=== PATIENT | male | born 1965 | race Caucasian/White ===

== ENCOUNTER 2016-06-08 10:38 | Emergency (ER) | payer SELFPAY ==
[~2016-06-08] VITALS: Ht 177.8 cm; Wt 90.9 kg
[~2016-06-08 10:38] MED LIST: CLON1 PO; LEXA20TA PO
[2016-06-08 10:50] VITALS: BP 176/111; PULSE 110; RESP 22; TEMP 98.6; O2SAT 100
[2016-06-08 10:55] VITALS: O2SAT 100
--- NOTE | 2016-06-08 10:57 | PD ---
HPI Chief Complaint: Chest Pain Time Seen by Provider: 10:43 Travel History International Travel<30 days: No Contact w/Intl Traveler<30days: No Traveled to known affect area: No History of Present Illness HPI This patient complains of chest pain. He woke up this morning with the chest pain. Pain is left side of his sternum. Feels like a pressure and aching. It is not exertional. Severity is moderate. He is extremely anxious. He is close to breaking down in tears. He has a divorce hearing scheduled for 10 minutes from now. He has history of anxiety and has chronic trouble with sleep. He uses excessive amounts of [id number] sleeping pills not had any effort to hurt himself but because he can't sleep. He denies history of cardiac disease. He never goes to a physician however. No alleviating factors. Duration 3 hours. PFSH Social History Alcohol Use: No Tobacco Use: Yes Substance Use: No Allergies-Medications (Allergen,Severity, Reaction): Coded Allergies: No Known Allergies (Unverified , 06/08/16) Reported Meds & Prescriptions Reported Meds & Active Scripts Active Review of Systems General / Constitutional: No: Fever Eyes: No: Visual changes HENT: No: Headaches Cardiovascular: Positive: Chest Pain or Discomfort Respiratory: No: Shortness of Breath Gastrointestinal: No: Abdominal Pain Genitourinary: No: Dysuria Musculoskeletal: No: Pain Skin: No Rash Neurologic: No: Weakness Psychiatric: Positive: Anxiety, No: Depression Endocrine: No: Polydipsia Hematologic/Lymphatic: No: Easy Bruising Physical Exam Narrative GENERAL: Well-nourished, well-developed patient with chest pain and anxiety . SKIN: Warm and dry. HEAD: Atraumatic. Normocephalic. EYES: Pupils equal and round. No scleral icterus. No injection or drainage. ENT: No nasal bleeding or discharge. Mucous membranes pink and moist. NECK: Trachea midline. No JVD. CARDIOVASCULAR: Regular rate and rhythm. No murmur appreciated. Tachycardic without ectopy RESPIRATORY: No accessory muscle use. Clear to auscultation. Breath sounds equal bilaterally. GASTROINTESTINAL: Abdomen soft, non-tender, nondistended. Hepatic and splenic margins not palpable. MUSCULOSKELETAL: No obvious deformities. No clubbing. No cyanosis. No edema. NEUROLOGICAL: Awake and alert. No obvious cranial nerve deficits. Motor grossly within normal limits. Normal speech. PSYCHIATRIC: Anxious mood and affect; insight and judgment normal. Data Data Last Documented VS Vital Signs Date Time Temp Pulse Resp B/P Pulse Ox O2 Delivery O2 Flow Rate FiO2 06/08/16 11:00 98.6 102 20 160/97 100 Room Air Orders Electrocardiogram (06/08/16 10:49) Basic Metabolic Panel (Bmp) (06/08/16 10:49) Ckmb (Isoenzyme) Profile (06/08/16 10:49) Complete Blood Count With Diff (06/08/16 10:49) Prothrombin Time / Inr (Pt) (06/08/16 10:49) Act Partial Throm Time (Ptt) (06/08/16 10:49) Troponin I (06/08/16 10:49) Chest, Single Ap (06/08/16 10:49) Ecg Monitoring (06/08/16 10:49) Iv Access Insert/Monitor (06/08/16 10:49) Oximetry (06/08/16 10:49) Aspirin (Aspirin) (06/08/16 11:00) Sodium Chloride 0.9% Flush (Ns Flush) (06/08/16 11:00) Lorazepam (Ativan) (06/08/16 11:00) Labs Laboratory Tests Test 06/08/16 10:05 White Blood Count 7.8 TH/MM3 Red Blood Count 5.53 MIL/MM3 Hemoglobin 17.0 GM/DL Hematocrit 51.4 % Mean Corpuscular Volume 93.0 FL Mean Corpuscular Hemoglobin 30.8 PG Mean Corpuscular Hemoglobin 33.1 % Concent Red Cell Distribution Width 13.5 % Platelet Count 309 TH/MM3 Mean Platelet Volume 7.8 FL Neutrophils (%) (Auto) 66.6 % Lymphocytes (%) (Auto) 23.2 % Monocytes (%) (Auto) 7.6 % Eosinophils (%) (Auto) 1.5 % Basophils (%) (Auto) 1.1 % Neutrophils # (Auto) 5.2 TH/MM3 Lymphocytes # (Auto) 1.8 TH/MM3 Monocytes # (Auto) 0.6 TH/MM3 Eosinophils # (Auto) 0.1 TH/MM3 Basophils # (Auto) 0.1 TH/MM3 CBC Comment DIFF FINAL Differential Comment Prothrombin Time 11.0 SEC Prothromb Time International 1.0 RATIO Ratio Activated Partial 28.0 SEC Thromboplast Time Sodium Level 142 MEQ/L Potassium Level 3.5 MEQ/L Chloride Level 103 MEQ/L Carbon Dioxide Level 27.0 MEQ/L Anion Gap 12 MEQ/L Blood Urea Nitrogen 12 MG/DL Creatinine 1.30 MG/DL Estimat Glomerular Filtration 58 ML/MIN Rate Random Glucose 99 MG/DL Calcium Level 8.7 MG/DL Total Creatine Kinase 67 U/L Troponin I LESS THAN 0.02 NG/ML MDM Medical Decision Making Medical Screen Exam Complete: Yes Emergency Medical Condition: Yes Medical Record Reviewed: Yes Differential Diagnosis Differential diagnosis includes SC, angina, pericarditis, pleurisy, GERD, anxiety. Narrative Course I have reviewed the patient's electronic medical record. Reviewed his psychiatry outpatient evaluation from 2014. Has not been here since IV placed I reviewed the EKG shows sinus tachycardia without ST elevation or ectopy I reviewed the chest x-ray which is normal Extended cardiac monitoring shows sinus tachycardia but steadily improving. Currently down to 110 from 130 CBC is normal Metabolic profile is normal CK is normal Troponin is normal Coagulation studies are normal I gave him an aspirin and 2 mg oral Ativan for significant anxiety issues Patient is calm down and tachycardia resolved. Patient workup is negative but I am recommending 23 are observation in the chest pain center to rule out cardiac cause of his symptoms. He is a smoker and may have other risk factors he has not had it evaluated. He thought about it but is going to refuse and sign out AGAINST MEDICAL ADVICE. I've advised him to return if he worsens or changes his mind. Diagnosis Primary Impression: Chest pain in adult Scripts No Active Prescriptions or Reported Meds Disposition: 07 AGAINST MEDICAL ADVICE Todd Alvarez MD Jun 08, 2016 10:57
[2016-06-08 11:00] VITALS: BP 160/97; PULSE 102; RESP 20; TEMP 98.6; O2SAT 100
[2016-06-08] MEDS ORDERED: SODIUM CHLORIDE 0.9% FLUSH 5 ML FLUSH IVF PRN (11:00)
[2016-06-08] MEDS ORDERED: ASPIRIN 325 MG TAB PO ONE (11:00)
[2016-06-08] MEDS ORDERED: LORazepam 1 MG TAB PO ONE (11:00)
[2016-06-08 11:04] LABS: AUTOMATED NEUTROPHIL # 5.2 TH/MM3 (1.8-7.7); BASOPHIL # 0.1 TH/MM3 (0-0.2); BASOPHIL % 1.1 % (0.0-2.0); EOSINOPHIL # 0.1 TH/MM3 (0-0.4); EOSINOPHIL % 1.5 % (0.0-4.0); HEMATOCRIT 51.4 % (39.0-51.0); HEMO FLAGS DIFF FINAL; LYMPH % 23.2 % (9.0-44.0); LYMPHOCYTE # 1.8 TH/MM3 (1.0-4.8); MEAN CORPUSCULAR HEMOGLOBIN 30.8 PG (27.0-34.0); MEAN CORPUSCULAR HGB CONC 33.1 % (32.0-36.0); MONO % 7.6 % (0.0-8.0); NEUT % 66.6 % (16.0-70.0); PLATELET COUNT 309 TH/MM3 (150-450); RED BLOOD COUNT 5.53 MIL/MM3 (4.50-5.90); RED CELL DISTRIBUTION WIDTH 13.5 % (11.6-17.2); WHITE BLOOD COUNT 7.8 TH/MM3 (4.0-11.0)
[2016-06-08 11:14] LABS: CHLORIDE 103 MEQ/L (98-107); POTASSIUM 3.5 MEQ/L (3.5-5.1); SODIUM (NA) 142 MEQ/L (136-145)
[2016-06-08 11:17] LABS: ANION GAP 12 MEQ/L (5-15); BLOOD UREA NITROGEN 12 MG/DL (7-18)
[2016-06-08 11:21] LABS: GLOMERULAR FILTRATION RATE 58 ML/MIN (>89)
[2016-06-08 11:27] LABS: CREATINE KINASE 67 U/L (39-308)
--- NOTE | 2016-06-08 11:30 | RADHPO ---
EXAM DATE/TIME: 06/08/2016 11:24 [facility] COMPARISON: No previous studies available for comparison. INDICATIONS : Chest pain, short of breath. MEDICAL HISTORY : None. SURGICAL HISTORY : None. ENCOUNTER: Initial ACUITY: 1 day PAIN SCORE: 10 LOCATION: Bilateral chest FINDINGS: A single view of the chest demonstrates the lungs to be symmetrically aerated without evidence of mas s, infiltrate or effusion. The cardiomediastinal contours are unremarkable. Osseous structures are intact. CONCLUSION: No acute disease. Alvin Foster MD FACR on June 08, 2016 at 11:28 Board Certified Radiologist. This report was verified electronically.
[2016-06-08 12:20] VITALS: BP 142/101; PULSE 105; RESP 18; O2SAT 98
--- NOTE | 2016-06-09 18:15 | EKG ---
Date Performed: 06/08/2016 Time Performed: 10:41:08 PTAGE: 51 years EKG: Sinus tachycardia. Inferior/lateral ST-T changes are nonspecific Borderline ECG NO PREVIOUS TRACING DOCTOR: Galindo Akbar Interpretating Date/Time 06/09/2016 18:12:27
[2016-09-13] MEDS ORDERED: IBUP800T23 PO (17:36)
[2016-09-13] MEDS ORDERED: OXYC30TA62 PO (17:36)
[2016-09-13] MEDS ORDERED: CEPH-460 PO (17:36)
[2016-09-13] MEDS ORDERED: NORC5TAB PO (17:36)
== END 2016-06-08 12:30 | disposition left against medical advice (07) ==
LOC: PHED 10:38
DX: R07.89 Other chest pain (principal); R00.0 Tachycardia, unspecified; R94.31 Abnormal electrocardiogram [ECG] [EKG]; Z72.0 Tobacco use; Z86.59 Personal history of other mental and behavioral disorders; Z53.29 Procedure and treatment not carried out because of patient's decision for other reasons
CPT/HCPCS: 71010; 80048; 82550; 84484; 85025; 85610; 85730; 93005

== ENCOUNTER → 2016-09-13 | Day surgery (SDC) | payer SELFPAY ==
[~2016-09-13] VITALS: Ht 177.8 cm; Wt 92.0 kg
[~2016-09-13] MED LIST changes: +BUPIVACAINE HCL PF 0.5% 30 ML VIAL ONE; +CEPH-460 PO; +CHLORHEXIDINE GLUCONATE 2 % 1 PACK (2 CLOTHS) TOPICAL PRN; -CLON1 PO; +DO NOT ADM ANY ANTICOAGULANT DRUGS PRN; +FAMOTIDINE 20 MG/2 ML VIAL ONE; +HYDROmorphone HCL PF 2 MG/ML VIAL ONE; +IBUP800T23 PO; +INSULIN HUMAN REGULAR 1,000 UNITS/10 ML VIAL SQ PRN; +LACTATED RINGER'S 1000 ML INJ 1,000 ML IV ONE; +LACTATED RINGER'S 1000 ML IV PRN; -LEXA20TA PO; +LIDOCAINE HCL 2% 50 ML VIAL ONE; +METOPROLOL TARTRATE 25 MG TAB PO PRN; +MIDAZOLAM HCL 2 MG/2 ML VIAL ONE; +NEOMYCIN/POLYMYXIN 1 ML G.U. IRRIGANT TOPICAL ONE; +NORC5TAB PO; +OXYC30TA62 PO; +POVIDONE IODINE 5% (ANTISEPSIS KIT) 4 APPLICATIONS EACH NARE PRN; +PROPOFOL 200 MG/20 ML AMP IV ONE; +SODIUM CHLORID 0.9% 500 ML IV PRN; +ceFAZolin 1,000 MG/NS 100 ML IV SCH; +ceFAZolin INJ 1,000 MG VIAL IV ONE
[2016-09-13 13:07] VITALS: BP 116/75; PULSE 76; RESP 18; TEMP 98.9; O2SAT 97
[2016-09-13 13:28] LABS: AUTOMATED NEUTROPHIL # 3.6 TH/MM3 (1.8-7.7); BASOPHIL % 0.6 % (0.0-2.0); EOSINOPHIL # 0.2 TH/MM3 (0-0.4); EOSINOPHIL % 3.1 % (0.0-4.0); HEMATOCRIT 42.7 % (39.0-51.0); HEMO FLAGS DIFF FINAL; LYMPH % 25.7 % (9.0-44.0); LYMPHOCYTE # 1.5 TH/MM3 (1.0-4.8); MEAN CELL VOLUME 90.7 FL (80.0-100.0); MEAN CORPUSCULAR HEMOGLOBIN 31.4 PG (27.0-34.0); MEAN CORPUSCULAR HGB CONC 34.7 % (32.0-36.0); MONO % 8.1 % (0.0-8.0); NEUT % 62.5 % (16.0-70.0); PLATELET COUNT 225 TH/MM3 (150-450); RED BLOOD COUNT 4.71 MIL/MM3 (4.50-5.90); RED CELL DISTRIBUTION WIDTH 12.9 % (11.6-17.2); WHITE BLOOD COUNT 5.7 TH/MM3 (4.0-11.0)
--- NOTE | 2016-09-13 17:32 | RADRPT ---
EXAM DATE/TIME: 09/13/2016 16:40 [facility] COMPARISON: No previous studies available for comparison. INDICATIONS : Orif left wrist. MEDICAL HISTORY : None. SURGICAL HISTORY : None. ENCOUNTER: Initial ACUITY: 1 day PAIN SCORE: Non-responsive. LOCATION: Left Wrist. FINDINGS: 4 views of the distal forearm and wrist recorded digitally the operating room during placement of a v olar plate in the distal radius. CONCLUSION: Intraoperative images. Eric Romo MD on September 13, 2016 at 17:29 Board Certified Radiologist. This report was verified electronically.
[2016-09-13 18:25] VITALS: BP 126/79; PULSE 63; RESP 16; TEMP 98.4; O2SAT 98
--- NOTE | 2016-09-13 23:28 | MP ---
cc: LISBETH VAUGHAN MD DATE OF SURGERY 09/13/16 PREOPERATIVE DIAGNOSIS 1. Left distal radius fracture five weeks old. 2. Left carpal tunnel syndrome PROCEDURE 1. Left distal radius fracture open reduction internal fixation 3+ fragments, partial osteotomy 2. Left open carpal tunnel release separate incision. 3. Use of image intensifier SURGEON Melany Vaughan III, MD PROCEDURE IN DETAIL The patient was brought to the operating room, placed supine on the operating table. After the correct site and side of surgery were verified by members of each team in the room multiple times including the patient and myself, after adequate preop markings and preoperative written consent were verified by everyone, after adequate preoperative time-out was performed to everyone's satisfaction, after adequate left upper extremity block was obtained and left upper extremity was prepped and draped in traditional sterile surgical fashion. Using C-arm fluoroscopy, the site of intended procedure was verified. The limb was exsanguinated with an Rah wrap and then a highly placed well-padded axillary tourniquet was inflated to 200 mmHg for a total of 73 minutes. A longitudinally oriented incision at the base of the palm and skin crease was made and carried down through the skin and subcutaneous tissue. Palmar fascia was retracted in opposite directions. The transverse carpal ligament identified and divided in its midline from its proximal most to its distal-most extents. The carpal tunnel contents were found to be tented up and were otherwise in continuity and did not appear to be compromised otherwise. Thorough irrigation was performed. The skin edges were reapproximated using running 4-0 nylon sutures. Hockey-stick inches incision was made over the volar aspect of the forearm at the distal radius, carried down through skin and subcutaneous tissue. Blunt dissection was performed. Bipolar electrocautery was used as needed. The flexor carpi radialis tendon was retracted ulnarly and the radial artery was identified and protected the entire time and retracted radially. The pronator quadratus was elevated off the volar aspect of the radius and the fracture was identified and looked to be nearly healed. It did not appear to extend into the joint, but it was in three or four separate pieces. This was whittled apart. Traction was placed in line and the distal aspect of the metaphysis to the joint was distracted distally. Thorough irrigation with saline was performed. Bone graft was applied within the joint. Using the [employer] distal radius set appropriately sized plate for the left distal radius was selected. It was fixed and placed distally first with angles made to correct the deformity in reduction. The distal screws were inserted under C-arm guidance. Following this, the distal aspect with all fragments secured was distracted distally and reduction was then accomplished. Additional cancellous bone graft was used to stabilize this. The proximal screws were then placed, both cortical and locking, restoring the radial inclination and improving the volar tilt from negative 10 to positive 10 degrees. Passive range of motion examination was full and unrestricted with no evidence of instability or crepitance. Thorough irrigation was performed multiple times. Once this was done, the axillary tourniquet was released. The hand and all the fingers on the left became immediately soft, pink and warm and had brisk capillary refill of less than 2 seconds. Thorough irrigation with a liters worth of saline was performed. Radial artery was full and pulsatile and had no evidence of any injury or bleeding. The pronator quadratus was reapproximated to radially located soft tissue, covering the hardware. Thorough irrigation was performed again. The deep subcutaneous tissues were approximated using subcutaneous 4-0 Vicryl sutures and the skin edges were reapproximated using running and interrupted 4-0 nylon sutures. The hand and arm were thoroughly cleansed and dried. Betadine Adaptic dressings were applied on top of the wound followed by bulky soft dressing and then a well-padded, well molded 4 inch wide short-arm splint was made in the usual fashion. The patient was awakened from anesthesia and transported to the Post Anesthesia Care Unit awake in stable condition at the end of the case. Sponge, needle, instrument counts were correct at the end of the case as reported by nurses in the room. MD MAGDY Lynn III/ /5:57 PM /11:12 PM
== END | disposition home or self-care (01) ==
LOC: HSDC 12:23
PROVIDERS: ATTEND Orthopaedic Surgery Hand Surgery
DX: S52.572A Other intraarticular fracture of lower end of left radius, initial encounter for closed fracture (principal); G56.02 Carpal tunnel syndrome, left upper limb; I10 Essential (primary) hypertension; X58.XXXA Exposure to other specified factors, initial encounter
CPT/HCPCS: 25609; 64721; 73110; 76000; 85025; C1713; J0690; J1170; J2250; J7120